=== PATIENT | female | born 1975 | race Caucasian/White ===

== ENCOUNTER → 2017-03-11 | Outpatient (CLI) | payer OTHER ==
[~2017-03-11] MED LIST: ADDERALL15 MG PO; CYMBALTA30 MG PO; FLEXERIL10 MG PO; MOTRIN800 MG PO; NEURONTIN300 MG PO; OLUX-E 0.05% FO50 GM TP
== END | disposition home or self-care (01) ==
LOC: CDC 11:29
DX: Z01.810 Encounter for preprocedural cardiovascular examination (principal); M51.16 Intervertebral disc disorders with radiculopathy, lumbar region; R94.31 Abnormal electrocardiogram [ECG] [EKG]
CPT/HCPCS: 93000